=== PATIENT | female | born 1960 | race Caucasian/White ===

== ENCOUNTER 2018-07-18 08:45 | Emergency (ER) | payer MEDICARE, OTHER ==
[~2018-07-18] VITALS: Ht 165.1 cm; Wt 95.3 kg
[~2018-07-18 08:45] MED LIST: ADDERALL 20 MG20 MG PO; AMBIEN 5 MG TABL5 M1 PO; AMBIEN CR12.5 MG PO; ARICEPT23 MG PO; CALCIUM 500 +1 EAC5 PO; CENTRUM SILVER1 EAC2 PO; CENTRUM SILVER1 EAC4 PO; CEPHALEXIN500 MG PO; COLACE100 MG PO; CYMBALTA60 MG PO; DOXYCYCLINE HYC50 MG PO; ENOXAPARIN30 MG/0.1 SUBQ; FLONASE 0.05%50 MCG NASAL; HYDROCODONE-APA1 TA1 PO; LEVOTHYROXIN0.125 M1 PO; LYRICA 50 MG50 MG PO; METAMUCIL PAC1 UDPKT PO; MIRALAX17 GM PO; NAMENDA 10 MG T10 MG PO; NAMENDA XR28 MG PO; NEXIUM20 MG PO; NORCO 5-325 TA1 EACH PO; OXYCODONE HCL 55 MG PO; OXYCONTIN20 M1 PO; PARAFON FORTE500 MG PO; PROTONIX40 M1 PO; VICODIN 5-3001 EACH PO
[2018-07-18 08:53] VITALS: BP 128/82
[2018-07-18] MEDS ORDERED: HYDROCODONE-AP1 EAC6 PO (09:35)
[2018-07-18] MEDS ORDERED: KEFLEX500 M1 PO (09:35)
== END 2018-07-18 09:53 | disposition home or self-care (01) ==
LOC: M.ERS 08:45
DX: Z88.2 Allergy status to sulfonamides (principal); Z88.6 Allergy status to analgesic agent; Z88.8 Allergy status to other drugs, medicaments and biological substances